=== PATIENT | female | born 1955 | race Hispanic/Latino ===

== ENCOUNTER → 2018-12-17 | Outpatient (CLI) | payer BC, MEDICARE | END | disposition home or self-care (01) | LOC: RAH 08:15 | PROVIDERS: ATTEND Student in an Organized Health Care Education/Training Program | DX: R22.1 Localized swelling, mass and lump, neck (principal) | CPT/HCPCS: 76536 ==

== ENCOUNTER 2019-01-21 08:37 | Day surgery (SDC) | payer BC, MEDICARE ==
[2019-01-18 17:20] VITALS: BP 136/70
[2019-01-18 17:49] LABS: APPEARANCE,URINE Clear (CLEAR); BASOPHILS % (AUTO) 1.1 % (0.0-5.0); BILIRUBIN,URINE Negative (NEGATIVE); COLOR,URINE Yellow (YELLOW); EOSINOPHILS % (AUTO) 3.3 % (0.0-8.0); GLUCOSE, URINE (UA) Negative (NEGATIVE); HEMATOCRIT 39.3 % (36-48); KETONES,URINE Negative (NEGATIVE); LEUKOCYTE ESTERASE ,URINE Trace (NEGATIVE); LYMPHOCYTES % (AUTO) 29.7 % (21.0-51.0); MEAN CORPUSCULAR HEMOGLOBIN 27.7 pg (27.0-33.0); MEAN CORPUSCULAR HGB CONC 33.1 g/dL (32.0-36.0); MEAN CORPUSCULAR VOLUME 83.8 fL (79-99); MONOCYTES % (AUTO) 9.5 % (3.0-13.0); NEUTROPHILS % (AUTO) 56.4 % (40.0-77.0); NITRATE,URINE Negative (NEGATIVE); OCCULT BLOOD,URINE Negative (NEGATIVE); PLATELET COUNT (AUTO) 275 K/uL (130-400); PROTEIN,URINE Negative (NEGATIVE); RED BLOOD CELL COUNT(AUTO) 4.69 MIL/uL (4.00-5.50); RED CELL DISTRIBUTION WIDTH 17.2 % (11.0-15.5); WHITE BLOOD COUNT (AUTO) 5.1 K/uL (4.8-10.8)
[2019-01-18 18:00] LABS: BACTERIA,URINE None Seen /HPF (None Seen); MUCUS,URINE Few LPF (None Seen); RBC,URINE 0-1 /HPF (0-1); SQUAMOUS EPITHELIAL CELL,UR 0-2 /HPF (0-2); WBC,URINE 0-1 /HPF (0-1)
[2019-01-18 18:02] LABS: ALBUMIN 3.7 g/dL (3.5-5.0); BILIRUBIN,TOTAL 0.2 mg/dL (0.2-1.0); CREATININE 0.6 mg/dL (0.5-1.5); POTASSIUM 4.4 mmol/L (3.5-5.1); TOTAL PROTEIN, SERUM 6.9 g/dL (6.0-8.3)
[2019-01-21] VITALS (16 sets, daily range): BP systolic 106–142; BP diastolic 53–78
[~2019-01-21] VITALS: Ht 161.3 cm; Wt 49.3 kg
[2019-01-21] MEDS ORDERED: LACTATED RINGERS 1000ML 1,000 ML IV ONE (09:21)
[2019-01-21] MEDS ORDERED: CEFAZOLIN SODIUM 1 GM VIAL ONE (09:22)
[2019-01-21] MEDS ORDERED: BUPIVACAINE/PF 0.5% 10ML VIAL ONE (09:46)
[2019-01-21] MEDS ORDERED: MIDAZOLAM HCL 1 MG/ML 2ML VIAL ONE (09:54)
[2019-01-21] MEDS ORDERED: DEXAMETHASONE SOD PHOSPHATE 10MG/ML 1ML VIAL ONE (09:54)
[2019-01-21] MEDS ORDERED: LIDOCAINE PF 2% 5ML ABBOJECT ONE (09:54)
[2019-01-21] MEDS ORDERED: PROPOFOL 10 MG/ML 20ML VIAL IV ONE (09:55)
[2019-01-21] MEDS ORDERED: FENTANYL CITRATE PF 50 MCG/1 ML 2ML VIAL ONE ×2 (09:55→10:10)
[2019-01-21] MEDS: CEFAZOLIN SODIUM 1 GM VIAL IVP ONE ×2 (09:56→10:05)
--- NOTE | 2019-01-21 12:20 | NUR ---
Called Doctor Sarmad office in regards to patient dressing, as per Lidya MERINO pt needs to keep dressing on for 48 hours and if it gets soiled to cover. Explained instructions to patient and no concerns voiced.
== END 2019-01-21 12:15 | disposition home or self-care (01) ==
LOC: DAH 08:37 → SUH 08:37
PROVIDERS: ATTEND Student in an Organized Health Care Education/Training Program
DX: D17.0 Benign lipomatous neoplasm of skin and subcutaneous tissue of head, face and neck (principal); Z90.49 Acquired absence of other specified parts of digestive tract; Z82.49 Family history of ischemic heart disease and other diseases of the circulatory system
CPT/HCPCS: 36415; 80053; 81001; 85025; 88304; A4606; J0690; J1100; J2001; J2250; J2704; J3010; J3490; J7120

== ENCOUNTER → 2020-11-23 | Outpatient (CLI) | payer BC | END | disposition home or self-care (01) | LOC: RAH 11-16 13:43 | PROVIDERS: ATTEND Physician Assistant Medical | DX: R92.2 Inconclusive mammogram (principal); N63.11 Unspecified lump in the right breast, upper outer quadrant ==

== ENCOUNTER → 2020-12-14 | Outpatient (CLI) | payer BC ==
[2020-12-14 09:01] LABS: INR 0.98 (0.85-1.15); PROTHROMBIN TIME 10.7 SEC (9.6-11.6)
== END | disposition home or self-care (01) ==
LOC: RAH 07:35
PROVIDERS: ATTEND Physician Assistant Medical
DX: D24.1 Benign neoplasm of right breast (principal); N63.11 Unspecified lump in the right breast, upper outer quadrant; Z79.01 Long term (current) use of anticoagulants
CPT/HCPCS: 19083; 36415; 85610; 85730; A4215 ×3; 10005